=== PATIENT | male | born 1985 | race Caucasian/White ===

== ENCOUNTER 2018-12-18 08:01 | Emergency (ER) | payer MEDICAID ==
[~2018-12-18] VITALS: Ht 154.9 cm; Wt 86.2 kg
--- NOTE | 2018-12-18 08:01 | NUR ---
PT BIBA BLS TO ER BED 11
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
[2018-12-18 08:06] VITALS: BP 136/95
[2018-12-18] MEDS ORDERED: diphenhydrAMINE 50 MG/ML VIAL IVP ONE (08:30)
[2018-12-18] MEDS ORDERED: NACL 0.9% 1,000 ML IV ONE (08:30)
[2018-12-18] MEDS ORDERED: METOCLOPRAMIDE 10 MG/2 ML INJ VIAL IVP ONE (08:30)
--- NOTE | 2018-12-18 08:53 | NUR ---
PT RETURNED FROM CT VIA W/C IN STABLE CONDITION
--- NOTE | 2018-12-18 09:15 | NUR ---
PATIENT ELOPED FROM FACILITY. DISCHARGE INSTRUCTIONS NOT GIVEN TO PATIENT. DR. WONG NOTIFIED.
== END 2018-12-18 09:15 | disposition left against medical advice (07) ==
LOC: MED 08:01
DX: R51 Headache (principal); F41.9 Anxiety disorder, unspecified; M54.9 Dorsalgia, unspecified
CPT/HCPCS: 70450; 81002; 96374; 96375; 99284; J1200; J2765; J7030

== ENCOUNTER 2018-12-25 10:47 | Emergency (ER) | payer MEDICAID ==
[~2018-12-25] VITALS: Ht 175.3 cm; Wt 99.8 kg
[2018-12-25 10:56] VITALS: BP 131/76
--- NOTE | 2018-12-25 11:19 | NUR ---
PT SENT TO XRAY VIA W/C THEN TO ER BED 12
--- NOTE | 2018-12-25 11:21 | NUR ---
PT TO ER BED 12 VIS W/C
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
[2018-12-25] MEDS ORDERED: METHOCARBAMOL 500 MG TAB PO ONE (11:40)
--- NOTE | 2018-12-25 12:04 | NUR ---
Patient refused splint/sling 3x. Er notified
--- NOTE | 2018-12-25 12:16 | NUR ---
UPON DISCHARGE PATIENT AGREED TO RECEIVING SPLINT/SLING. 4 INCH ORTHOGLASS USED FOR POSTERIOR LEFT LONG ARM SPLINT. AND SLING APPLIED. PMSC'S ASSESSED AND WNL
--- NOTE | 2018-12-25 12:17 | NUR ---
Patient discharged with v/s stable. Written and verbal after care instructions given and explained. Patient alert, oriented and verbalized understanding of instructions. Ambulatory with steady gait. All questions addressed prior to discharge. ID band removed. Patient advised to follow up with PMD. Rx of NORCO 5/325 MG, MOTRIN 800 MG, ROBAXIN 750 MG given. Patient educated on indication of medication including possible reaction and side effects. Opportunity to ask questions provided and answered.
[2018-12-25 12:18] VITALS: BP 125/75
== END 2018-12-25 12:17 | disposition home or self-care (01) ==
LOC: MED 10:47
DX: S42.402A Unspecified fracture of lower end of left humerus, initial encounter for closed fracture (principal); F41.9 Anxiety disorder, unspecified; X58.XXXA Exposure to other specified factors, initial encounter; Y93.89 Activity, other specified; Y92.89 Other specified places as the place of occurrence of the external cause; Y99.8 Other external cause status
CPT/HCPCS: 29105; 73060; 73090; 99283; Q0092